=== PATIENT | male | born 1990 | race American Indian/Alaskan Native ===

== ENCOUNTER 2020-03-31 11:19 | Emergency (ER) | payer SELFPAY ==
[2020-03-31 12:03] VITALS: BP 148/100
--- NOTE | 2020-03-31 13:12 | Emergency Department Report ---
ED General Adult HPI - General Chief complaint: Upper Respiratory Infection Stated complaint: CONGESTION AND NOSE PAIN Time Seen by Provider: 03/31/20 12:33 Source: patient Mode of arrival: Ambulatory Limitations: No Limitations - Related Data Previous Rx's Medication Instructions Recorded Last Taken Type Ketorolac [Toradol] 10 mg PO Q6H PRN #10 tablet 03/31/20 Unknown Rx Allergies Allergy/AdvReac Type Severity Reaction Status Date / Time No Known Allergies Allergy Unverified 03/31/20 12:01 ED Review of Systems ROS: Stated complaint: CONGESTION AND NOSE PAIN Other details as noted in HPI Comment: All other systems reviewed and negative ED Past Medical Hx - Past Medical History Previous Medical History?: No - Surgical History Past Surgical History?: Yes Additional Surgical History: FACIAL - Medications Home Medications: Home Medications Medication Instructions Recorded Confirmed Last Taken Type Ketorolac [Toradol] 10 mg PO Q6H PRN #10 tablet 03/31/20 Unknown Rx ED Physical Exam - General Limitations: No Limitations General appearance: alert, in no apparent distress - Head Head exam: Present: atraumatic, normocephalic - Eye Eye exam: Present: normal appearance, PERRL, EOMI Pupils: Present: normal accommodation - ENT ENT exam: Present: mucous membranes moist, other (swelling to bridge of nose with some nasal congestion. no septal defromities. no active bleeding. No discharge. ) - Expanded ENT Exam Expanded Ear exam: Present: normal external inspection Mouth exam: Present: normal external inspection, tongue normal Teeth exam: Present: dental caries - Neck Neck exam: Present: normal inspection - Respiratory Respiratory exam: Present: normal lung sounds bilaterally. Absent: respiratory distress - Cardiovascular Cardiovascular Exam: Present: regular rate, normal rhythm. Absent: systolic murmur, diastolic murmur, rubs, gallop - GI/Abdominal GI/Abdominal exam: Present: soft, normal bowel sounds - Rectal Rectal exam: Present: deferred - Extremities Exam Extremities exam: Present: normal inspection - Back Exam Back exam: Present: normal inspection - Neurological Exam Neurological exam: Present: alert, oriented X3 - Psychiatric Psychiatric exam: Present: normal affect, normal mood - Skin Skin exam: Present: warm, dry, intact, normal color. Absent: rash ED Course Vital Signs 03/31/20 12:02 Temperature 98.1 F Pulse Rate 99 H Respiratory 20 Rate Blood Pressure 148/100 O2 Sat by Pulse 94 Oximetry Critical care attestation.: If time is entered above; I have spent that time in minutes in the direct care of this critically ill patient, excluding procedure time. ED Disposition Disposition: DC-01 TO HOME OR SELFCARE Condition: Stable Instructions: Nasal Fracture, [id number], Contusion, [id number], How to Use Cold Therapy Prescriptions: Ketorolac [Toradol] 10 mg PO Q6H PRN #10 tablet PRN Reason: Pain Referrals: PRIMARY CARE, [Primary Care Provider] - 3-5 Days [facility], [facility] [Provider Group] - 3-5 Days [facility] [Provider Group] - 3-5 Days
--- NOTE | 2020-04-01 17:58 | XRay Report ---
XR nasal bone 3+V INDICATION: nasal trauma. COMPARISON: None available. FINDINGS: There is no appreciable displaced nasal fracture. Paranasal sinuses appear clear. Nasal septum is mid line. There has been previous internal fixation in the left maxillary sinus and left orbital saini. Signer Name: Venkatesh Valdovinos MD Signed: 03/31/2020 1:01 PM Workstation Name: [id number]
== END 2020-03-31 13:42 | disposition home or self-care (01) ==
LOC: ED 11:19
DX: J34.89 Other specified disorders of nose and nasal sinuses (principal); R09.89 Other specified symptoms and signs involving the circulatory and respiratory systems; Z79.899 Other long term (current) drug therapy; Z98.890 Other specified postprocedural states
CPT/HCPCS: 70160; 99283